=== PATIENT | male | born 1985 | race Two or more races ===

== ENCOUNTER 2020-11-13 13:09 | Emergency (ER) | payer SELFPAY | END 2020-11-13 20:38 | LOC: ER 13:09 | DX: S01.83XA Puncture wound without foreign body of other part of head, initial encounter (principal); R41.82 Altered mental status, unspecified; R06.89 Other abnormalities of breathing; Y93.89 Activity, other specified; Y92.89 Other specified places as the place of occurrence of the external cause; Y99.8 Other external cause status | CPT/HCPCS: 31500; 92950 ==